=== PATIENT | female | born 2000 | race Caucasian/White ===

== ENCOUNTER 2022-06-07 21:17 | Emergency (ER) | payer MEDICAID ==
[~2022-06-07] VITALS: Ht 162.6 cm; Wt 54.0 kg
[2022-06-07] MEDS ORDERED: TIZANIDINE2 MG PO (21:50)
[2022-06-07] MEDS ORDERED: FERROUS SULF325 M3 PO (21:51)
[2022-06-07] MEDS ORDERED: FLONASE AL50 MCG/ACT (23:43)
[2022-06-07] MEDS ORDERED: ZITHROMAX250 MG PO (23:43)
[2022-06-07] MEDS ORDERED: CLARITIN10 M1 PO (23:43)
[2022-06-07 23:46] VITALS: BP 124/75
== END 2022-06-07 23:57 | disposition home or self-care (01) ==
LOC: ED 21:17
DX: J32.9 Chronic sinusitis, unspecified (principal); J02.9 Acute pharyngitis, unspecified; Z20.822 Contact with and (suspected) exposure to COVID-19

== ENCOUNTER 2022-08-06 13:40 | Emergency (ER) | payer MEDICAID ==
[~2022-08-06] VITALS: Ht 162.6 cm; Wt 56.0 kg
[~2022-08-06 13:40] MED LIST: CLARITIN10 M1 PO; FERROUS SULF325 M3 PO; FLONASE AL50 MCG/ACT; TIZANIDINE2 MG PO; ZITHROMAX250 MG PO
[2022-08-06 15:32] LABS: HEMATOCRIT 41.2 % (37.0-47.0); HEMOGLOBIN 13.7 g/dl (12.0-16.0); IMMATURE GRANULOCYTES 0.1 % (0.0-5.0); MEAN CELL VOLUME 90.7 fL CALC (80.0-100.0); MEAN CORPUSCULAR HGB 30.2 pG CALC (26.0-32.0); MEAN CORPUSCULAR HGB CONC 33.3 g/dL CAL (32.0-36.0); NEUT# 6.29 thou/uL (2.00-7.15); RED BLOOD COUNT 4.54 mill/uL (4.20-5.60); RED CELL DISTRI WIDTH 11.7 % (11.5-15.5); URINE BILIRUBIN - DIPSTICK NEGATIVE (NEGATIVE); URINE BLOOD DIPSTICK LARGE (NEGATIVE); URINE COLOR YELLOW; URINE GLUCOSE - DIPSTICK NEGATIVE (NEGATIVE); URINE KETONE NEGATIVE (NEGATIVE); URINE LEUK ESTERASE TRACE (NEGATIVE); URINE PH 6.5 (4.5-8.0); URINE PROTEIN - DIPSTICK NEGATIVE (NEG-TRACE); URINE UROBILINOGEN - DIPSTICK 0.2 E.U./dL (0.2)
[2022-08-06 15:36] LABS: URINE NITRITE - DIPSTICK NEGATIVE (Negative)
[2022-08-06 15:45] LABS: URINE SQUAMOUS EPITHELIAL CELL MODERATE EPI/hpf (0-FEW)
[2022-08-06 15:51] LABS: ALKALINE PHOSPHATASE 76 u/l (38-126); ANION GAP 14 (6-22 (CALC)); BILIRUBIN, TOTAL 1.2 mg/dL (0.0-1.4); BUN 10 mg/dL (8-21); BUN/CREATININE RATIO 16 (12-20 (CALC)); CARBON DIOXIDE 27 mmol/l (22-30); CHLORIDE 102 mmol/l (95-108); CREATININE 0.6 mg/dL (0.5-1.0); GFR FOR AFR.AMER. > 60 ML/MIN (>=60 (CALC)); GFR OTHER RACES > 60 ML/MIN (>=60 (CALC)); POTASSIUM 3.8 mmol/l (3.5-5.1); SGOT/AST 28 u/l (14-36); SODIUM 139 mmol/l (137-146); TOTAL PROTEIN 7.7 g/dL (6.3-8.2)
[2022-08-06] MEDS ORDERED: TORADOL PO (18:03)
[2022-08-06] MEDS ORDERED: HYDROCO/APAP1 TA9 PO (18:03)
[2022-08-06 18:25] VITALS: BP 119/68
== END 2022-08-06 18:33 | disposition home or self-care (01) ==
LOC: ED 13:40
PROVIDERS: Nurse Practitioner
DX: N83.201 Unspecified ovarian cyst, right side (principal); N93.9 Abnormal uterine and vaginal bleeding, unspecified; Z90.721 Acquired absence of ovaries, unilateral
CPT/HCPCS: Q9967